=== PATIENT | male | born 1970 | race Caucasian/White ===

== ENCOUNTER → 2019-04-16 11:28 | Outpatient (CLI) | payer OTHER, SELFPAY ==
[2019-04-16 11:41] LABS: Basophils # 0.1 K/mm3 (0-0.2); Basophils % 1.2 % (0.1-2.0); Eosinophils # 0.5 K/mm3 (0.0-0.4); Eosinophils % 6.2 % (0.1-12.0); Hematocrit 46.7 % (42.0-52.0); Hemoglobin 14.3 g/dL (14.1-18.0); Lymphocytes # 1.4 K/mm3 (0.7-4.5); Lymphocytes % 18.6 % (10-50); Mean Corpuscular HGB Conc 30.7 g/dL (31.8-35.4); Mean Corpuscular Hemoglobin 26.1 pg (27.0-31.2); Mean Corpuscular Volume 85.2 fl (80-94); Mean Platelet Volume 7.9 fl (7.4-10.4); Monocytes # 0.4 K/mm3 (0.1-1.0); Monocytes % 4.7 % (1.7-9.3); Neutrophils # 5.4 K/mm3 (1.8-7.8); Neutrophils % 69.2 % (37.0-80.0); Platelet Count 331 K/mm3 (142-424); Red Blood Count 5.48 M/mm3 (4.60-6.20); Red Cell Distribution Width 13.9 % (11.5-17.5); White Blood Count 7.7 K/mm3 (4.8-10.8)
[2019-04-16 11:50] LABS: Hemoglobin A1C 8.8 % (0.0-7.0)
[2019-04-16 11:58] LABS: Alanine Aminotransferase 17 U/L (12-78); Albumin Level 3.4 gm/dL (3.4-5.0); Albumin/Globulin Ratio 0.9 (1.1-1.8); Alkaline Phosphatase 115 U/L (46-116); Aspartate Amino Transferase 13 U/L (15-37); Bilirubin,Total 1.4 mg/dL (0.2-1.0); Blood Urea Nitrogen 14 mg/dL (7-18); Calcium 8.6 mg/dL (8.5-10.1); Carbon Dioxide 25 mmol/L (21.0-32.0); Chloride 102 mmol/L (98-107); Chol/HDL Ratio 2.7 (1-3.5); Cholesterol 150 mg/dL (140-200); Creatinine,Serum 0.89 mg/dL (0.70-1.30); Estimated Glomerular Filt Rate 92 ml/min (>60); GFR (African American) 111 ML/MIN (>60); Globulin 3.6 gm/dl (1.3-3.2); Glucose 307 mg/dL (74-106); HDL Cholesterol 56 mg/dL (27-67); LDL Cholesterol 78 mg/dL (0-130); Sodium 139 mmol/L (136-145); Triglycerides 80 mg/dL (30-200); Troponin I < 0.02 ng/ml (0.00-0.06); VLDL Cholesterol 16 mg/dL (0-40)
--- NOTE | 2019-04-16 11:59 | XR_ITS ---
XR chest 2V HISTORY: ITS.REASON: COUGH,CHEST PAIN,COPD,TYPE I DM ORDERING PHYSICIAN: Cas Elizondo PATIENT AGE: 48 years COMPARISON: 06/23/2017 FINDINGS: The cardiomediastinal silhouette and pulmonary vascularity are within normal limits. The lungs are clear without infiltrates, suspicious nodules, or pleural effusions. There is mild hyperinflation with prominent anterior clear space consistent with COPD. No acute bony abnormalities. IMPRESSION: COPD, no change with no acute finding
== END ==
PROVIDERS: Visit Provider Internal Medicine
DX: R07.9 Chest pain, unspecified (principal); R05 Cough; J44.1 Chronic obstructive pulmonary disease with (acute) exacerbation; E10.40 Type 1 diabetes mellitus with diabetic neuropathy, unspecified
CPT/HCPCS: 36415; 71046; 80053; 80061; 83036; 84484; 85025; 93005

== ENCOUNTER → 2019-05-28 11:23 | Outpatient (CLI) | payer OTHER, SELFPAY ==
--- NOTE | 2019-05-28 11:26 | XR_ITS ---
XR chest 2V HISTORY: ITS.REASON: ASTHMA, PERSISTANT COUGH ORDERING PHYSICIAN: Cas Elizondo PATIENT AGE: 49 years COMPARISON: 04/16/2019 FINDINGS: The cardiomediastinal silhouette and pulmonary vascularity are within normal limits. The lungs are clear without infiltrates, suspicious nodules, or pleural effusions. Hyperinflation consistent with COPD. No acute bony abnormalities. IMPRESSION: No change with no acute finding
== END ==
PROVIDERS: PCP Internal Medicine; Visit Provider Internal Medicine
DX: J45.909 Unspecified asthma, uncomplicated (principal); R05 Cough
CPT/HCPCS: 71046

== ENCOUNTER → 2019-12-26 15:30 | Outpatient (CLI) | payer BC, SELFPAY ==
--- NOTE | 2019-12-26 15:39 | XR_ITS ---
PROCEDURE: XR CHEST 2V CLINICAL HISTORY: LT CHEST PAIN,COUGH,FEVER COMPARISON: CXR1 CHEST-PORTABLE from 03/16/2017 CXR1 CHEST-PORTABLE from 06/20/2017 CXR1 CHEST-PORTABLE from 06/23/2017 FINDINGS: The cardiomediastinal silhouette and pulmonary vascularity are within normal limits. There is hyperinflation with attenuation of the peripheral pulmonary vessels consistent with COPD. No lobar consolidation or collapse No acute bony abnormalities. IMPRESSION: COPD. No change with no acute finding Dictated by: Missael Phipps MD 12/26/2019 16:26 Electronically signed by Missael Phipps MD in [place] 12/26/2019 16:26
== END ==
PROVIDERS: PCP Internal Medicine; Visit Provider Internal Medicine
DX: R07.89 Other chest pain (principal); R05 Cough; R50.9 Fever, unspecified
CPT/HCPCS: 71046

== ENCOUNTER 2020-11-05 10:06 | Emergency (ER) | payer BC, SELFPAY ==
[2020-11-05 10:07] VITALS: BP 147/71; PULSE 70; RESP 18; TEMP 37.2; O2SAT 99; BMI 32.5
--- NOTE | 2020-11-05 10:31 | HMH.EDUTC ---
[facility] [place] Clinical Impression: Strep throat Disposition: Home, Self-Care Condition on Discharge: Good Instructions: Throat Culture, DI for Strep Throat Additional Instructions: Drink plenty of fluids. Take tylenol for pain or fever. Return if you begin to have difficulty breathing. Follow up with your regular doctor. GO TO THE ER FOR ANY WORSENING SYMPTOMS Throw your tooth brush away and get a new one. Prescriptions: Amoxicillin/Potassium Clav [Augmentin 875-125 Tablet] 1 tab PO Q12H 10 Days #20 tab Transmission Status: Received by [facility] Referrals: Cas Elizondo [Primary Care Provider] - Forms: Work/School Release Time of Disposition: 10:37 Medical Decision Making - Medical Records Medical records reviewed: No: I reviewed the patient's medical records. - Alex Inquiry Pt receiving controlled substance: No Vital Signs: 11/05/20 10:07 11/05/20 10:48 Temperature 98.9 F 98.9 F Temperature Source Oral Oral Pulse Rate 70 Pulse Rate [Right] 70 Respiratory Rate 18 18 Blood Pressure 147/71 H Blood Pressure [Right Arm] 147/71 H Blood Pressure Mean [Right Arm] 96 02 Sat by Pulse Oximetry 99 - Lab Data Lab results reviewed: Yes: I reviewed the patient's lab results. Lab Results 11/05/20 10:18: Strep Scn Rapid Clinic Positive A Orders (Tests/Meds): ORDERS Category Date Time Status Covid-19 Nasal PCR Sendout P&C Stat Lab 11/05/20 10:19 Received [facility] [place]PI - General Stated complaint: cough, sore throat Time Seen by Provider: 11/05/20 10:31 Description of Symptoms (Recalled from Triage Doc. by RN): pt request covid test pt c/o cough, sore throat x 2 days HEENT Symptoms (Recalled from RN notes): Yes Resp Symptoms (Recalled from RN notes): Yes Skin Symptoms (Recalled from RN notes): No MS Symptoms (Recalled from RN notes): No Functional Status (Recalled from RN notes): wnl - History of Present Illness Provider Complaint: He c/o sore throat and feeling bad since yesterday. He denies any shortness of breath. He denies any documented exposure to covid. - Related Data Home Medications Medication Instructions Recorded Confirmed insulin glargine 100 unit/mL (3 25 unit SQ BID ml 11/09/18 11/09/18 mL) subcutaneous pen insulin lispro 100 unit/mL 15 unit SQ TID ml 11/09/18 11/09/18 subcutaneous cartridge lisinopril 10 mg tablet 10 mg PO DAILY 11/09/18 11/09/18 lovastatin 20 mg tablet 20 mg PO DAILY 11/09/18 11/09/18 tamsulosin 0.4 mg capsule 0.4 mg PO DAILY 11/09/18 11/09/18 Previous Rx's Medication Instructions Recorded Amoxicillin/Potassium Clav 1 tab PO Q12H 10 Days #20 tab 11/05/20 [Augmentin 875-125 Tablet] Allergies Allergy/AdvReac Type Severity Reaction Status Date / Time No Known Allergies Allergy Verified 11/05/20 10:20 - Worker's Comp Is this a Worker's Comp case?: No Is this an H Worker's Comp?: No Is this a [facility] Worker's Comp?: No [facility] History - Hepatitis A Screen Drug use history?: No High risk sexual behaviors?: No History of sexually transmitted infection?: No Currently employed?: No Childcare worker?: No Do you have indoor plumbing?: Yes Do you have electricity?: Yes Attestation statement:: This patient has been screened for Hepatitis A risk factors. I have reviewed the patient's past medical history: Yes Medical History: Reports:: Diabetes Mellitus Type 2 - Social History Smoking Status: Current every day smoker Alcohol Intake: never Occupational Status: employed ROS Obtained: Yes All systems reviewed & no additional complaints - Constitutional Constitutional: Reports system reviewed and no additional complaints, except as docu - Eyes Eyes: Reports system reviewed and no additional complaints, except as docu - ENT Ears, Nose, Mouth, and Throat: Reports system reviewed and no additional complaints, except as docu - Cardiovascular Cardiovascular: Reports system reviewed and
[2020-11-05 10:36] LABS: UTC Strep Screen (Rapid) Positive (Negative)
[2020-11-05 10:48] VITALS: BP 147/71; PULSE 70; RESP 18; TEMP 37.2; O2SAT 99
[2020-11-06 10:01] LABS: Covid-19 Nasal PCR Sendout P&C Negative
== END 2020-11-05 10:49 | disposition home or self-care (01) ==
PROVIDERS: Emergency Provider Nurse Practitioner Family; PCP Internal Medicine
DX: Z20.822 Contact with and (suspected) exposure to COVID-19 (principal); J02.0 Streptococcal pharyngitis; Z79.4 Long term (current) use of insulin
CPT/HCPCS: 87880; 99202; G0463; U0004

== ENCOUNTER → 2021-03-17 14:12 | Outpatient (CLI) | payer BC, SELFPAY ==
--- NOTE | 2021-03-17 14:17 | XR_ITS ---
PROCEDURE: XR KNEE LT 3V CLINICAL INDICATION: LT KNEE INJURY 03/15/21 Pain COMPARISON: No exams were available for comparison FINDINGS: No fracture or dislocation. No lytic or blastic change. There is normal mineralization. There are mild osteoarthritic changes of the medial compartment. There is increased density in the suprapatellar region consistent with a knee joint effusion. Other findings:None. IMPRESSION: Mild osteoarthritic change medial compartment with knee joint effusion. No acute fracture apparent Dictated by: Missael Phipps MD 03/17/2021 14:42 Missael Phipps MD in [place] 03/17/2021 14:42
== END ==
PROVIDERS: PCP Internal Medicine; Visit Provider Internal Medicine
DX: S89.92XA Unspecified injury of left lower leg, initial encounter (principal)
CPT/HCPCS: 73562

== ENCOUNTER → 2021-10-30 12:30 | Outpatient (CLI) | payer BC, SELFPAY | PROVIDERS: Visit Provider Nurse Practitioner | DX: Z20.822 Contact with and (suspected) exposure to COVID-19 (principal) | CPT/HCPCS: C9803; U0003; U0005 ==

== ENCOUNTER → 2022-01-15 16:40 | Outpatient (CLI) | payer BC, SELFPAY ==
--- NOTE | 2022-01-15 | XR_ITS ---
PROCEDURE INFORMATION: Exam: XR Chest Exam date and time: 01/15/2022 4:52 PM Age: 51 years old Clinical indication: Cough; Additional info: Cough; Flu like symptoms; Possible covid TECHNIQUE: Imaging protocol: XR of the chest. Views: 1 view. COMPARISON: CR XR CHEST 2V 12/26/2019 3:43 PM FINDINGS: Lungs: Unremarkable. No consolidation. Pleural spaces: Unremarkable. No pleural effusion. No pneumothorax. Heart/Mediastinum: Unremarkable. No cardiomegaly. Bones/joints: Unremarkable. IMPRESSION: No acute findings.
== END ==
PROVIDERS: PCP Internal Medicine; Visit Provider Internal Medicine
DX: Z20.822 Contact with and (suspected) exposure to COVID-19 (principal)
CPT/HCPCS: 71045; C9803; U0003; U0005

== ENCOUNTER 2022-01-28 21:27 | Emergency (ER) | payer BC, SELFPAY ==
[2022-01-28 21:28] VITALS: BP 164/93; PULSE 87; RESP 20; TEMP 36.8; O2SAT 99; BMI 34.9
--- NOTE | 2022-01-28 21:50 | XR_ITS ---
PROCEDURE INFORMATION: Exam: XR Right Ribs with PA Chest Exam date and time: 01/28/2022 9:49 PM Age: 51 years old Clinical indication: Other: Right lateral mid rib pain after coughing. ; Additional info: Pain in right ribs TECHNIQUE: Imaging protocol: XR Right ribs with PA chest. Views: 3 views COMPARISON: CR XR CHEST 2V 01/28/2022 9:47 PM FINDINGS: Lungs: Unremarkable. No consolidation. Pleural spaces: Unremarkable. No pleural effusion. No pneumothorax. Heart/Mediastinum: Unremarkable. No cardiomegaly. Bones/joints: Unremarkable. IMPRESSION: No acute findings.
--- NOTE | 2022-01-28 21:50 | XR_ITS ---
PROCEDURE INFORMATION: Exam: XR Chest Exam date and time: 01/28/2022 9:47 PM Age: 51 years old Clinical indication: Right-sided; Patient HX: Right lateral mid rib pain started after coughing. ; Additional info: Chest pain TECHNIQUE: Imaging protocol: XR of the chest. Views: 2 views. COMPARISON: CR XR CHEST PORTABLE 01/15/2022 4:52 PM FINDINGS: Lungs: Bilateral hyperinflation is present. Atelectatic changes noted within both lung bases. Pleural spaces: There is no evidence of pneumothorax. There are no pleural effusions present. Heart/Mediastinum: Unremarkable. No cardiomegaly. Bones/joints: The thoracic spine demonstrates mild degenerative changes at multiple levels. IMPRESSION: 1. Bilateral hyperinflation is present. 2. Atelectatic changes noted within both lung bases.
--- NOTE | 2022-01-28 22:19 | CT_ITS ---
PROCEDURE INFORMATION: Exam: CT Chest Without Contrast; Diagnostic Exam date and time: 01/28/2022 10:31 PM Age: 51 years old Clinical indication: Right-sided; Patient HX: Right sided rib pain; Additional info: Chest pain TECHNIQUE: Imaging protocol: Diagnostic computed tomography of the chest without contrast. 3D rendering (Not supervised by radiologist): MIP and/or 3D reconstructed images were created by the technologist. Radiation optimization: All CT scans at this facility use at least one of these dose optimization techniques: automated exposure control; mA and/or kV adjustment per patient size (includes targeted exams where dose is matched to clinical indication); or iterative reconstruction. COMPARISON: CR XR RIBS RT MIN 3V W CXR1V 01/28/2022 9:49 PM FINDINGS: Lungs: Bilateral hyperinflation is present. Atelectatic changes noted within both lung bases, greater on the right. Pleural spaces: There is no evidence of pneumothorax. There are no pleural effusions present. Heart: There is mild atherosclerotic calcification of the coronary arteries. Lymph nodes: There is no evidence of mediastinal or hilar lymphadenopathy. Aorta: Unremarkable. No aortic aneurysm. Diaphragm: There is nonspecific elevation of the right hemidiaphragm. Spleen: The spleen demonstrates punctate calcifications, consistent with remote granulomatous organism exposure. Bones/joints: No evidence of acute right rib fracture. The thoracic spine demonstrates mild degenerative changes at multiple levels. Soft tissues: Unremarkable. Other findings: Lack of IV contrast limits the study as well as decreases sensitivity and specificity. IMPRESSION: 1. Atelectatic changes noted within both lung bases, greater on the right. 2. No evidence of acute right rib fracture. 3. Bilateral hyperinflation is present.
[2022-01-28 22:44] LABS: Basophils # 0.2 K/mm3 (0-0.2); Basophils % 1.4 % (0.1-2.0); Eosinophils # 0.2 K/mm3 (0.0-0.4); Eosinophils % 1.4 % (0.1-12.0); Hematocrit 45.9 % (42.0-52.0); Hemoglobin 14.9 g/dL (14.1-18.0); Lymphocytes # 1.3 K/mm3 (0.7-4.5); Lymphocytes % 10.2 % (10-50); Mean Corpuscular HGB Conc 32.4 g/dL (31.8-35.4); Mean Corpuscular Hemoglobin 26.4 pg (27.0-31.2); Mean Corpuscular Volume 81.5 fl (80-94); Monocytes # 0.6 K/mm3 (0.1-1.0); Monocytes % 4.4 % (1.7-9.3); Neutrophils # 10.4 K/mm3 (1.8-7.8); Neutrophils % 82.4 % (37.0-80.0); Platelet Count 380 K/mm3 (142-424); Red Blood Count 5.64 M/mm3 (4.60-6.20); Red Cell Distribution Width 14.2 % (11.5-17.5); White Blood Count 12.7 K/mm3 (4.8-10.8)
[2022-01-28 22:45] LABS: Alanine Aminotransferase 23 U/L (12-78); Albumin/Globulin Ratio 1.6 (1.1-1.8); Alkaline Phosphatase 90 U/L (38-126); Anion Gap 9.4 mEq/L (5-15); Aspartate Amino Transferase 26 U/L (17-59); Bilirubin,Total 0.6 mg/dl (0.2-1.3); Blood Urea Nitrogen 20 mg/dl (9-20); Calcium 9.1 mg/dl (8.4-10.2); Carbon Dioxide 27 mmol/L (22.0-30.0); Chloride 105 mmol/L (98-107); Creatinine Clearance Estimated 186 mL/min (50-200); Estimated Glomerular Filt Rate 119 ml/min (>60); GFR (African American) 144 ML/MIN (>60); Globulin 2.5 g/dL (1.3-3.2); Glucose 232 mg/dl (74-100); Potassium 4.4 mmoL/L (3.5-5.1); Sodium 137 mmol/L (136-145); Total Protein,Serum 6.5 g/dl (6.3-8.2)
[2022-01-28 22:50] LABS: C-Reactive Protein 1.7 mg/L (0-4)
[2022-01-28 23:04] LABS: Procalcitonin 0.044 ng/mL (0.0-2.0)
--- NOTE | 2022-01-29 00:01 | HMH.EDGENADL ---
ED Disposition Clinical Impression: Rib pain on right side Disposition: Home, Self-Care Condition on Discharge: Good Instructions: DI for Acute Pain -- Adult Additional Instructions: use meds and see pcp for follow up Prescriptions: predniSONE [Prednisone 20mg Tab] 20 mg PO BID #10 tab Transmission Status: [facility] Ketorolac Tromethamine [Toradol 10mg tablet] 10 mg PO Q6HP PRN #8 tab MDD 40mg/day PRN Reason: Moderate To Severe Pain Transmission Status: Pending to [facility] Referrals: Cas Elizondo [Primary Care Provider] - - Critical Care Critical Care Time: No Attestation: On 01/28/22, the high probability of a clinically significant, sudden or life threatening deterioration of the following system(s) required my full and direct attention, intervention and personal management. The time I documented below is in addition to time spent performing reported procedures but includes the following listed in this critical care notation. Medical Decision Making - Medical Records Medical records reviewed: Yes: I reviewed the patient's medical records. - Alex Inquiry Pt receiving controlled substance: No Vital Signs: 01/28/22 21:28 Temperature 98.2 F Temperature Source Oral Pulse Rate [Left Radial] 87 Respiratory Rate 20 Blood Pressure [Right Arm] 164/93 H Blood Pressure Mean [Right Arm] 116 Blood Pressure Position [Right Arm] Sitting 02 Sat by Pulse Oximetry 99 Oxygen Delivery Method Room Air - Lab Data Lab results reviewed: Yes: I reviewed the patient's lab results. Lab Results 01/28/22 22:30: WBC 12.7 H, RBC 5.64, Hgb 14.9, Hct 45.9, MCV 81.5, MCH 26.4 L, MCHC 32.4, RDW 14.2, Plt Count 380, MPV 8.0, Neut % (Auto) 82.4 H, Lymph % (Auto) 10.2, [place] % (Auto) 4.4, Eos % (Auto) 1.4, Baso % (Auto) 1.4, Neut # (Auto) 10.4 H, Lymph # (Auto) 1.3, [place] # (Auto) 0.6, Eos # (Auto) 0.2, Baso # (Auto) 0.2 01/28/22 22:30: Sodium 137, Potassium 4.4, Chloride 105, Carbon Dioxide 27, Anion Gap 9.4, BUN 20, Creatinine 0.70, Estimated Creat Clear 186, Estimated GFR 119, Est GFR ( Amer) 144, Glucose 232 H, Calcium 9.1, Total Bilirubin 0.6, AST 26, ALT 23, Alkaline Phosphatase 90, C-Reactive Protein 1.7, Total Protein 6.5, Albumin 4.0, Globulin 2.5, Albumin/Globulin Ratio 1.6, Procalcitonin 0.044 Result diagrams: 01/28/22 22:30 01/28/22 22:30 Orders (Tests/Meds): ED MEDICATIONS Discontinued Medications Generic Name Dose Route Start Last Admin Trade Name Freq PRN Reason Stop Dose Admin Acetaminophen 1,000 mg 01/28/22 21:51 01/28/22 21:53 Acetaminophen 500mg Tab PO 01/28/22 21:52 1,000 mg ONCE ONE Administration Ketorolac Tromethamine 30 mg 01/29/22 00:11 Ketorolac 30mg/Ml Vial IV 01/29/22 00:12 ONCE ONE Methylprednisolone Sodium Succinate 125 mg 01/29/22 00:11 Methylprednisolone Sod Succ 125mg Vial IV 01/29/22 00:12 ONCE ONE - Radiology Data #1 Image(s): Chest, Other (rib) Image Reviewed: Yes I have reviewed radiologist's interpretation Preliminary Findings: Abnormal - CT Data CT Scan: Chest Time Received: 00:[address] Reviewed: Yes: I have viewed the radiologist's interpretation Preliminary Findings: Abnormal Medical Decision Narrative: pain with post ribs but no fx or pvt and will treat as inflamatory General Adult HPI - General Chief complaint: PAIN Stated complaint: coughing-- back pain Time Seen by Provider: 01/29/22 00:01 Mode of Arrival: Ambulatory Source of Information: Patient, Medical Record Limitations: No Limitations Description of Symptoms (Recalled from ER Triage Doc. by RN): PT REPORTS HE HAS A CHRONIC COUGH. PT REPORTS HE HAS BEEN COUGHING MORE THAN NORMAL. 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 PT REPORTS PAIN INTERMITT. WORSE WITH COUGHING AND RATES 7/10. - Hist
[2022-01-29 00:23] VITALS: BP 163/86; PULSE 75; RESP 14; TEMP 36.6; O2SAT 97
== END 2022-01-29 00:33 | disposition home or self-care (01) ==
PROVIDERS: Emergency Provider Emergency Medicine; PCP Internal Medicine
DX: R07.81 Pleurodynia (principal); M54.9 Dorsalgia, unspecified; E11.9 Type 2 diabetes mellitus without complications; F17.210 Nicotine dependence, cigarettes, uncomplicated; Z79.4 Long term (current) use of insulin; Z95.2 Presence of prosthetic heart valve; Z79.899 Other long term (current) drug therapy
CPT/HCPCS: 71046; 71101; 71250; 80053; 84145; 85025; 86140; 96374; 96375; 99285

== ENCOUNTER → 2023-02-21 12:31 | Outpatient (CLI) | payer BC, SELFPAY ==
[2023-02-21 15:13] LABS: Basophils # 0.1 K/mm3 (0-0.2); Basophils % 0.7 % (0.1-2.0); Eosinophils # 0.3 K/mm3 (0.0-0.4); Eosinophils % 3.2 % (0.1-12.0); Hematocrit 48.5 % (42.0-52.0); Hemoglobin 15.7 g/dL (14.1-18.0); Lymphocytes # 1.9 K/mm3 (0.7-4.5); Lymphocytes % 20.1 % (10-50); Mean Corpuscular HGB Conc 32.5 g/dL (31.8-35.4); Mean Corpuscular Hemoglobin 26.2 pg (27.0-31.2); Mean Corpuscular Volume 80.6 fl (80-94); Mean Platelet Volume 8.1 fl (7.4-10.4); Monocytes # 0.5 K/mm3 (0.1-1.0); Monocytes % 4.9 % (1.7-9.3); Neutrophils # 6.7 K/mm3 (1.8-7.8); Neutrophils % 71.1 % (37.0-80.0); Platelet Count 342 K/mm3 (142-424); Red Blood Count 6.01 M/mm3 (4.60-6.20); White Blood Count 9.4 K/mm3 (4.8-10.8)
[2023-02-21 15:33] LABS: Microalbumin/Creatinine Ratio 74.7
[2023-02-21 15:37] LABS: Creatinine,Urine Random 61 mg/dL (Not Estab.); Hemoglobin A1C 8.1 % (4.0-6.0)
[2023-02-21 15:46] LABS: Alanine Aminotransferase 18 U/L (12-78); Albumin Level 4.2 g/dl (3.5-5.0); Albumin/Globulin Ratio 1.8 (1.1-1.8); Alkaline Phosphatase 140 U/L (38-126); Anion Gap 18.8 mEq/L (5-15); Aspartate Amino Transferase 22 U/L (17-59); Bilirubin,Total 1.1 mg/dl (0.2-1.3); Blood Urea Nitrogen 17 mg/dl (9-20); Calcium 8.8 mg/dl (8.4-10.2); Carbon Dioxide 25 mmol/L (22.0-30.0); Chloride 95 mmol/L (98-107); Chol/HDL Ratio 2.4 (1-3.5); Cholesterol 190 mg/dl (140-200); Estimated Glomerular Filt Rate 102 ml/min (>60); GFR (African American) 123 ML/MIN (>60); Globulin 2.3 g/dL (1.3-3.2); Glucose 388 mg/dl (74-100); HDL Cholesterol 80 mg/dl (40-60); Potassium 4.8 mmoL/L (3.5-5.1); Sodium 134 mmol/L (136-145); Total Protein,Serum 6.5 g/dl (6.3-8.2); Triglycerides 64 mg/dl (30-150); VLDL Cholesterol 13 mg/dL (0-40)
[2023-02-21 15:58] LABS: Direct LDL Cholesterol 99.23 mg/dL (100-129)
[2023-02-21 16:15] LABS: Prostate Specific Ag Screen 1.7 ng/ml (0.0-4.0); Thyroid Stimulating Hormone 1.58 uIU/mL (0.465-4.68)
== END ==
PROVIDERS: PCP Internal Medicine; Visit Provider Internal Medicine
DX: E10.22 Type 1 diabetes mellitus with diabetic chronic kidney disease (principal); I10 Essential (primary) hypertension; J44.1 Chronic obstructive pulmonary disease with (acute) exacerbation; Z79.4 Long term (current) use of insulin; Z12.5 Encounter for screening for malignant neoplasm of prostate
CPT/HCPCS: 80053; 80061; 82043; 82570; 83036; 84443; 85025; G0103

== ENCOUNTER 2023-04-04 14:49 | Observation (INO) | payer BC, SELFPAY ==
--- NOTE | 2023-04-04 11:33 | XR_ITS ---
FINAL REPORT TECHNIQUE: Chest PA & Lateral CLINICAL HISTORY: COUGH COMPARISON: 01/15/2022 FINDINGS: 2 views of the chest were performed. The heart size is normal. The mediastinum is within normal limits. There is no acute cardiopulmonary process. There are no pleural effusions. There is no pneumothorax. The bony thorax appears intact. IMPRESSION: No acute cardiopulmonary process. Reviewed, Interpreted and Dictated by Scottie Jacinto MD Transcribed by Iva Malin Authenticated and [facility]
[2023-04-04 11:39] LABS: Basophils # 0.1 K/mm3 (0-0.2); Basophils % 0.6 % (0.1-2.0); Eosinophils # 0.1 K/mm3 (0.0-0.4); Eosinophils % 0.7 % (0.1-12.0); Hematocrit 50.7 % (42.0-52.0); Hemoglobin 16.5 g/dL (14.1-18.0); Lymphocytes # 1.8 K/mm3 (0.7-4.5); Lymphocytes % 18.2 % (10-50); Mean Corpuscular HGB Conc 32.5 g/dL (31.8-35.4); Mean Corpuscular Hemoglobin 25.9 pg (27.0-31.2); Mean Corpuscular Volume 79.8 fl (80-94); Mean Platelet Volume 7.5 fl (7.4-10.4); Monocytes # 0.9 K/mm3 (0.1-1.0); Monocytes % 8.9 % (1.7-9.3); Neutrophils % 71.6 % (37.0-80.0); Platelet Count 343 K/mm3 (142-424); Red Blood Count 6.36 M/mm3 (4.60-6.20); Red Cell Distribution Width 14.1 % (11.5-17.5); White Blood Count 9.8 K/mm3 (4.8-10.8)
[2023-04-04 12:00] LABS: Chloride 99 mmol/L (98-107); Potassium 4.5 mmoL/L (3.5-5.1); Sodium 133 mmol/L (136-145)
[2023-04-04 12:03] LABS: Alanine Aminotransferase 23 U/L (12-78); Albumin Level 4.3 g/dl (3.5-5.0); Albumin/Globulin Ratio 1.7 (1.1-1.8); Alkaline Phosphatase 143 U/L (38-126); Anion Gap 19.5 mEq/L (5-15); Aspartate Amino Transferase 28 U/L (17-59); Bilirubin,Total 0.9 mg/dl (0.2-1.3); Blood Urea Nitrogen 30 mg/dl (9-20); Calcium 8.6 mg/dl (8.4-10.2); Carbon Dioxide 19 mmol/L (22.0-30.0); Estimated Glomerular Filt Rate 79 ml/min (>60); GFR (African American) 95 ML/MIN (>60); Globulin 2.6 g/dL (1.3-3.2); Glucose 255 mg/dl (74-100); Total Protein,Serum 6.9 g/dl (6.3-8.2)
[2023-04-04 12:19] LABS: Acetone, Serum (Rapid) Small (None Detect)
--- NOTE | 2023-04-04 15:00 | PC.NURSE ---
arrived to floor by w/c from front lobby admissions
[2023-04-04 15:11] VITALS: BP 164/88; PULSE 92; RESP 20; TEMP 36.5; O2SAT 96
--- NOTE | 2023-04-04 15:11 | HMH.PHAINT1 ---
Pharmacy Intervention Comments: MEDICATION RECONCILIATION COMPLETED ON PATIENT VIA PHONE CALL TO CLINIC PHARMACY. -MICHOACANO HOFF, [place]
--- NOTE | 2023-04-04 15:15 | CT_ITS ---
FINAL REPORT TECHNIQUE: The patient was injected with IV contrast. Axial images were obtained through the chest in a PE protocol. 3-D reconstruction images were also performed. Individualized dose reduction techniques using automated exposure control or adjustment of the MA and/or KV according to patient's size were employed. CLINICAL HISTORY: r/o PE and pneumonia, sob, cough, weakness COMPARISON: CT chest 01/28/2022 FINDINGS: There is suboptimal opacification of the pulmonary arteries. No large central pulmonary embolism identified. There is no aortic dissection. There is no axillary adenopathy. There is no hilar or mediastinal adenopathy. The heart size is normal. There is no pericardial or pleural effusion. No suspicious infiltrate or nodule is identified. There are mild changes of centrilobular emphysema. Limited images of the upper abdomen demonstrate mild fatty infiltration of the liver. The gallbladder is present. IMPRESSION: No evidence of pulmonary embolus or dissection. Reviewed, Interpreted and Dictated by Scottie Jacinto MD Transcribed by Jerri Garcia Authenticated and . [facility]
[2023-04-04 15:16] VITALS: BMI 28.9
[2023-04-04 16:09] LABS: Anion Gap 22.8 mEq/L (5-15); Blood Urea Nitrogen 35 mg/dl (9-20); Calcium 8.2 mg/dl (8.4-10.2); Carbon Dioxide 20 mmol/L (22.0-30.0); Chloride 93 mmol/L (98-107); Creatinine Clearance Estimated 107 mL/min (50-200); Estimated Glomerular Filt Rate 79 ml/min (>60); GFR (African American) 95 ML/MIN (>60); Potassium 4.8 mmoL/L (3.5-5.1); Sodium 131 mmol/L (136-145)
[2023-04-04 16:18] LABS: Glucose 455 mg/dl (74-100)
--- NOTE | 2023-04-04 16:22 | EXP.HP ---
History of Present Illness *Admission Date: 04/04/23 *Reason for visit:: Shortness of breath, weakness *History of present illness: Patient with past medical history of insulin-dependent diabetes mellitus, COPD presents with shortness of breath starting on Tuesday. Patient visited primary care physician Dr. Elizondo today complaining of shortness of breath and decreased p.o. intake. Admits to chronic chills but denies fevers, sick contacts. Also mitts to productive greenish sputum since Tuesday. Admits to pleuritic chest discomfort 04/25, worse with movement, better with rest and standing still. Chest x-ray done in PCP office showed no infiltrates. Patient presented in PCP office with signs of DKA. BUN/creatinine ratio 30/1.0, glucose 255, small acetone urine, and anion gap of greater than 19 noted during PCP evaluation. Patient subsequently directly admitted to medical floor by Dr. Hanson for amelioration of mild to moderate DKA and bacterial bronchitis. Denies diarrhea, abdominal pain, ataxia, new muscle weakness or sensory abnormalities. [facility] Disclaimer: The information contained in this section may have been updated after the patient was seen, as this information can be updated by other users. 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 Hypertension Medical History (Updated 04/04/23 @ 16:38 by Jourdan Hanson MD) COPD (chronic obstructive pulmonary disease) Family History (Updated 04/04/23 @ 16:35 by Cristiane Aburto RN) Other No significant family history Social History (Updated 04/04/23 @ 16:36 by Cristiane Aburto RN) Smoking Status: Current every day smoker alcohol intake: never current occupational status: employed Travel in the last 8 weeks: None Review of Systems Constitutional Constitutional: Reports weakness Eyes Eyes: Reports system reviewed and no additional complaints, except as documented ENT Ears, Nose, Mouth, and Throat: Reports system reviewed and no additional complaints, except as documented *Cardiovascular Cardiovascular: Reports system reviewed and no additional complaints, except as documented *Respiratory Respiratory: Reports excessive phlegm production and Reports pain on inspiration *Gastrointestinal Gastrointestinal: Reports system reviewed and no additional complaints, except as documented *Genitourinary Genitourinary: Reports system reviewed and no additional complaints, except as documented *Musculoskeletal Musculoskeletal: Reports system reviewed and no additional complaints, except as documented Integumentary/Breasts Skin/Breast: Reports system reviewed and no additional complaints, except as documented *Neurologic Neurologic: Reports weakness Meds Home Medications and Allergies Home Medications Medication Instructions Recorded Confirmed Type insulin glargine 100 unit/mL (3 50 unit SQ HS Diabetes 04/04/23 04/04/23 History mL) subcutaneous pen (Lantus Solostar U-100 Insulin) insulin lispro 100 unit/mL 10 unit SQ AC Diabetes 04/04/23 04/04/23 History subcutaneous pen New Prescriptions to Start Prescriptions: Allergies Allergy/AdvReac Type Severity Reaction Status Date / Time No Known Allergies Allergy Verified 11/05/20 10:20 Exam Data for Last 24 hours Vital signs and Labs for Last 24 Hours: Temp Pulse Resp BP Pulse Ox 97.7 F 92 H 20 164/88 H 96 04/04/23 15:11 04/04/23 15:11 04/04/23 15:11 04/04/23 15:11 04/04/23 15:11 Laboratory Results - last 24 hr 04/04/23 11:21: WBC 9.8, RBC 6.36 H, Hgb 16.5, Hct 50.7, MCV 79.8 L, MCH 25.9 L, MCHC 32.5, RDW 14.1, Plt Count 343, MPV 7.5, Neut % (Auto) 71.6, Lymph % (Auto) 18.2, [place] % (Auto) 8.9, Eos % (Auto) 0.7, Baso % (Auto) 0.6, Neut # (Auto) 7.0, Lymph # (Auto) 1.8, [place] # (Auto) 0.9, Eos # (Auto) 0.1, Baso # (Auto) 0.1 04/04/23 11:21: Sodium 133 L, Potassium 4.5, Chloride 99, Carbon Dioxide 19 L, Anion Gap 1
[2023-04-04 16:26] LABS: Procalcitonin 0.144 ng/mL (0.0-2.0)
[2023-04-04 16:47] LABS: Lactic Acid 1.1 mmol/L (0.7-2.1)
--- NOTE | 2023-04-04 17:19 | PC.NURSE ---
fsbg 341 15 min after 3units iv insuin admin
[2023-04-04 17:37] LABS: Coronavirus 19, PCR Not Detected (NotDetected); Influenza A, PCR Not Detected (NotDetected); Influenza B, PCR Not Detected (NotDetected)
[2023-04-04 18:32] VITALS: PULSE 89; PULSE 94; O2SAT 94
[2023-04-04 19:10] LABS: Chloride 98 mmol/L (98-107); Sodium 132 mmol/L (136-145)
[2023-04-04 19:13] LABS: POC Glucose,Bedside 231 (70-110)
[2023-04-04 19:13] LABS: POC Glucose,Bedside 341 (70-110)
[2023-04-04 19:13] LABS: Blood Urea Nitrogen 36 mg/dl (9-20); Creatinine Clearance Estimated 107 mL/min (50-200); Estimated Glomerular Filt Rate 79 ml/min (>60); GFR (African American) 95 ML/MIN (>60)
[2023-04-04 19:13] LABS: POC Glucose,Bedside 409 (70-110)
[2023-04-04 19:14] LABS: Calcium 8.3 mg/dl (8.4-10.2); Carbon Dioxide 19 mmol/L (22.0-30.0); Glucose 234 mg/dl (74-100)
[2023-04-04 19:29] LABS: Troponin I < 0.01 ng/ml (0.00-0.034)
--- NOTE | 2023-04-04 19:48 | PC.NURSE ---
1800 lung sounds clear throughout, bowel sounds are active in all quads. no skin issues noted. pt is a/o x 4 nad noted.
[2023-04-04 20:00] VITALS: BP 140/80; PULSE 80; PULSE 84; RESP 28; TEMP 36.5; O2SAT 92
[2023-04-04 21:57] VITALS: BP 140/80; PULSE 114; RESP 35
[2023-04-04 22:10] LABS: POC Glucose,Bedside 184 (70-110)
[2023-04-04 22:10] LABS: POC Glucose,Bedside 185 (70-110)
[2023-04-04 22:10] LABS: POC Glucose,Bedside 190 (70-110)
[2023-04-04 23:08] LABS: POC Glucose,Bedside 173 (70-110)
[2023-04-04 23:37] LABS: Anion Gap 14.8 mEq/L (5-15); Blood Urea Nitrogen 33 mg/dl (9-20); Carbon Dioxide 21 mmol/L (22.0-30.0); Chloride 102 mmol/L (98-107); Creatinine Clearance Estimated 133 mL/min (50-200); Estimated Glomerular Filt Rate 102 ml/min (>60); GFR (African American) 123 ML/MIN (>60); Glucose 175 mg/dl (74-100); Potassium 3.8 mmoL/L (3.5-5.1); Sodium 134 mmol/L (136-145)
[2023-04-04 23:42] VITALS: BP 152/80; PULSE 77; RESP 25; TEMP 36.7; O2SAT 94
[2023-04-05] VITALS (16 sets, daily range): BP systolic 84–163; BP diastolic 67–86; PULSE 76–100; RESP 16–25; TEMP 36.6–36.9; O2SAT 92–95; BMI 28.6
[2023-04-05 00:10] LABS: POC Glucose,Bedside 146 (70-110)
[2023-04-05 00:55] LABS: Troponin I < 0.01 ng/ml (0.00-0.034)
[2023-04-05 01:10] LABS: POC Glucose,Bedside 170 (70-110)
[2023-04-05 02:00] LABS: POC Glucose,Bedside 172 (70-110)
[2023-04-05 03:22] LABS: POC Glucose,Bedside 178 (70-110)
[2023-04-05 04:20] LABS: POC Glucose,Bedside 168 (70-110)
[2023-04-05 05:09] LABS: POC Glucose,Bedside 178 (70-110)
[2023-04-05 06:03] LABS: Basophils % 0.3 % (0.1-2.0); Mean Corpuscular Volume 78.7 fl (80-94); Monocytes # 0.5 K/mm3 (0.1-1.0)
[2023-04-05 06:05] LABS: POC Glucose,Bedside 184 (70-110)
[2023-04-05 06:22] LABS: Chloride 103 mmol/L (98-107); Potassium 3.7 mmoL/L (3.5-5.1); Sodium 135 mmol/L (136-145)
[2023-04-05 06:25] LABS: Anion Gap 12.7 mEq/L (5-15); Blood Urea Nitrogen 27 mg/dl (9-20); Calcium 7.6 mg/dl (8.4-10.2); Carbon Dioxide 23 mmol/L (22.0-30.0); Creatinine Clearance Estimated 151 mL/min (50-200); Estimated Glomerular Filt Rate 119 ml/min (>60); GFR (African American) 144 ML/MIN (>60); Glucose 190 mg/dl (74-100); Magnesium 1.9 mg/dl (1.6-2.3)
[2023-04-05 06:36] LABS: Troponin I < 0.01 ng/ml (0.00-0.034)
[2023-04-05 06:37] LABS: Eosinophils % 0.3 % (0.1-12.0); Hematocrit 42.8 % (42.0-52.0); Lymphocytes # 1.5 K/mm3 (0.7-4.5); Lymphocytes % 18.9 % (10-50); Mean Corpuscular HGB Conc 32.7 g/dL (31.8-35.4); Mean Corpuscular Hemoglobin 25.7 pg (27.0-31.2); Mean Platelet Volume 7.6 fl (7.4-10.4); Monocytes % 6.5 % (1.7-9.3); Neutrophils # 5.7 K/mm3 (1.8-7.8); Neutrophils % 74.1 % (37.0-80.0); Platelet Count 295 K/mm3 (142-424); Red Blood Count 5.44 M/mm3 (4.60-6.20); Red Cell Distribution Width 14.2 % (11.5-17.5); White Blood Count 7.7 K/mm3 (4.8-10.8)
[2023-04-05 07:07] LABS: POC Glucose,Bedside 208 (70-110)
--- NOTE | 2023-04-05 09:42 | PC.NURSE ---
Insulin drip stopped per Dr. Hanson.
[2023-04-05 09:48] LABS: POC Glucose,Bedside 274 (70-110)
--- NOTE | 2023-04-05 10:24 | PC.NURSE ---
Per Dr. Hanson, it is okay to take off the heart monitor and continuos heart monitor and bp cuff. Recheck glucose at 1230 and cover with sliding scale coverage.
[2023-04-05 13:06] LABS: POC Glucose,Bedside 348 (70-110)
[2023-04-05 14:55] LABS: Chloride 99 mmol/L (98-107); Sodium 133 mmol/L (136-145)
[2023-04-05 14:56] LABS: Potassium 3.6 mmoL/L (3.5-5.1)
[2023-04-05 14:59] LABS: Anion Gap 15.6 mEq/L (5-15); Blood Urea Nitrogen 25 mg/dl (9-20); Calcium 8.5 mg/dl (8.4-10.2); Carbon Dioxide 22 mmol/L (22.0-30.0); Creatinine Clearance Estimated 118 mL/min (50-200); Estimated Glomerular Filt Rate 89 ml/min (>60); GFR (African American) 108 ML/MIN (>60)
[2023-04-05 15:17] LABS: Glucose 484 mg/dl (74-100)
--- NOTE | 2023-04-05 15:50 | EXP.PN ---
Subjective *Date: 04/05/23 *Time: 15:53 Interval history: Patient's blood sugars proving to be extremely hard to control during hospitalization. Patient taken off insulin drip this morning with anion gap closed. However, after receiving 45 units subcu short acting insulin over 5-hour interval, and in addition to 29 units given in a.m.; patient's blood sugars still in 300s. Patient's discharge for today therefore canceled, and patient placed on high-dose sliding scale insulin every 4 hours. Denies polydipsia, polyuria, polyphagia, fevers, chills. Exam Data for Last 24 hours Vital signs and Labs for Last 24 Hours: Temp Pulse Resp BP Pulse Ox 98.5 F 78 25 H 153/80 H 94 L 04/05/23 11:02 04/05/23 13:09 04/05/23 09:44 04/05/23 09:44 04/05/23 09:44 Laboratory Results - last 24 hr 04/04/23 15:08: SARS-CoV-2 (PCR) Not detected, Influenza A Untype (PCR) Not detected, Influenza Type B (PCR) Not detected 04/04/23 15:39: Sodium 131 L, Potassium 4.8, Chloride 93 L, Carbon Dioxide 20 L, Anion Gap 22.8 H, BUN 35 H, Creatinine 1.00, Estimated Creat Clear 107, Estimated GFR 79, Est GFR ( Amer) 95, Glucose 455 H* D, Calcium 8.2 L 04/04/23 15:39: Procalcitonin 0.144 04/04/23 15:47: POC Glucose 409 H* 04/04/23 16:30: Lactate 1.1 04/04/23 17:17: POC Glucose 341 H* 04/04/23 18:18: POC Glucose 231 H 04/04/23 18:55: Troponin I < 0.01 04/04/23 18:55: Sodium 132 L, Potassium 4.0, Chloride 98, Carbon Dioxide 19 L, Anion Gap 19.0 H, BUN 36 H, Creatinine 1.00, Estimated Creat Clear 107, Estimated GFR 79, Est GFR ( Amer) 95, Glucose 234 H D, Calcium 8.3 L 04/04/23 20:00: POC Glucose 185 H 04/04/23 21:02: POC Glucose 190 H 04/04/23 22:04: POC Glucose 184 H 04/04/23 23:02: POC Glucose 173 H 04/04/23 23:26: Sodium 134 L, Potassium 3.8, Chloride 102, Carbon Dioxide 21 L, Anion Gap 14.8, BUN 33 H, Creatinine 0.80, Estimated Creat Clear 133, Estimated GFR 102, Est GFR ( Amer) 123 D, Glucose 175 H D, Calcium 8.0 L 04/05/23 00:03: POC Glucose 146 H 04/05/23 01:03: POC Glucose 170 H 04/05/23 01:53: POC Glucose 172 H 04/05/23 03:15: POC Glucose 178 H 04/05/23 04:13: POC Glucose 168 H 04/05/23 05:02: POC Glucose 178 H 04/05/23 05:29: WBC 7.7, RBC 5.44, Hgb 14.0 L D, Hct 42.8, MCV 78.7 L, MCH 25.7 L, MCHC 32.7, RDW 14.2, Plt Count 295, MPV 7.6, Neut % (Auto) 74.1, Lymph % (Auto) 18.9, [place] % (Auto) 6.5, Eos % (Auto) 0.3, Baso % (Auto) 0.3, Neut # (Auto) 5.7, Lymph # (Auto) 1.5, [place] # (Auto) 0.5, Eos # (Auto) 0.0, Baso # (Auto) 0.0 04/05/23 05:29: Sodium 135 L, Potassium 3.7, Chloride 103, Carbon Dioxide 23, Anion Gap 12.7, BUN 27 H, Creatinine 0.70, Estimated Creat Clear 151, Estimated GFR 119, Est GFR ( Amer) 144, Glucose 190 H, Calcium 7.6 L, Magnesium 1.9, Troponin I < 0.01 04/05/23 05:58: POC Glucose 184 H 04/05/23 07:00: POC Glucose 208 H 04/05/23 09:39: POC Glucose 274 H 04/05/23 12:52: POC Glucose 348 H* 04/05/23 14:28: Sodium 133 L, Potassium 3.6, Chloride 99, Carbon Dioxide 22, Anion Gap 15.6 H, BUN 25 H, Creatinine 0.90 D, Estimated Creat Clear 118, Estimated GFR 89, Est GFR ( Amer) 108 D, Glucose 484 H* D, Calcium 8.5 04/05/23 23:30: Troponin I < 0.01 I & O for Last 24 hours: Intake & Output 04/02/23 04/03/23 04/04/23 04/05/23 23:59 23:59 23:59 23:59 Intake Total 240 / 1595 1956 / 1956 Output Total 400 / 400 600 / 600 Balance -160 / 1195 1356 / 1356 Weight 86.296 kg 85.729 kg *Routine HEENT Exam Head: Present normocephalic Eye: Present EOMI and normal accommodation ENT: Present mucous membranes moist *Routine Neck Exam Neck: Present supple and full ROM *Routine Respiratory Exam Respiratory: Present CTA bilaterally; Absent accessory muscle use *Routine Cardiovascular Exam Cardiovascular: Present RRR, Normal S1 and Normal S2 *Routine Abdominal Exam Abdominal: Present soft, normoactive bowel sounds and rebound; Absent guarding *Routine Rectal Exam Comments: deferred *Routine Exam Comments: def
[2023-04-05 16:10] LABS: POC Glucose,Bedside 383 (70-110)
[2023-04-05 23:24] LABS: POC Glucose,Bedside 93 (70-110)
[2023-04-05 23:24] LABS: POC Glucose,Bedside 225 (70-110)
[2023-04-05 23:24] LABS: POC Glucose,Bedside 231 (70-110)
[2023-04-06] VITALS (8 sets, daily range): BP systolic 133–144; BP diastolic 53–97; PULSE 78–120; RESP 16–22; TEMP 36.8–37.1; O2SAT 90–99; BMI 32.6
[2023-04-06 03:10] LABS: POC Glucose,Bedside 65 (70-110)
[2023-04-06 03:44] LABS: POC Glucose,Bedside 60 (70-110)
[2023-04-06 03:44] LABS: POC Glucose,Bedside 63 (70-110)
[2023-04-06 04:36] LABS: POC Glucose,Bedside 180 (70-110)
[2023-04-06 06:06] LABS: Basophils # 0.1 K/mm3 (0-0.2); Basophils % 0.5 % (0.1-2.0); Eosinophils # 0.1 K/mm3 (0.0-0.4); Eosinophils % 0.8 % (0.1-12.0); Hematocrit 41.3 % (42.0-52.0); Hemoglobin 13.4 g/dL (14.1-18.0); Lymphocytes # 2.5 K/mm3 (0.7-4.5); Lymphocytes % 24.3 % (10-50); Mean Corpuscular HGB Conc 32.5 g/dL (31.8-35.4); Mean Corpuscular Hemoglobin 25.8 pg (27.0-31.2); Mean Corpuscular Volume 79.2 fl (80-94); Mean Platelet Volume 7.8 fl (7.4-10.4); Monocytes # 0.7 K/mm3 (0.1-1.0); Monocytes % 7.1 % (1.7-9.3); Neutrophils # 6.9 K/mm3 (1.8-7.8); Neutrophils % 67.2 % (37.0-80.0); Platelet Count 258 K/mm3 (142-424); Red Blood Count 5.21 M/mm3 (4.60-6.20); Red Cell Distribution Width 14.2 % (11.5-17.5); White Blood Count 10.2 K/mm3 (4.8-10.8)
[2023-04-06 06:08] LABS: Chloride 107 mmol/L (98-107); Potassium 3.3 mmoL/L (3.5-5.1); Sodium 138 mmol/L (136-145)
[2023-04-06 06:10] LABS: Blood Urea Nitrogen 17 mg/dl (9-20); Creatinine Clearance Estimated 201 mL/min (50-200); Estimated Glomerular Filt Rate 142 ml/min (>60); GFR (African American) 172 ML/MIN (>60)
[2023-04-06 06:11] LABS: Anion Gap 11.3 mEq/L (5-15); Calcium 7.7 mg/dl (8.4-10.2); Carbon Dioxide 23 mmol/L (22.0-30.0); Glucose 166 mg/dl (74-100); Magnesium 1.7 mg/dl (1.6-2.3)
[2023-04-06 07:15] LABS: POC Glucose,Bedside 176 (70-110)
--- NOTE | 2023-04-06 07:20 | EXP.DC.SUM ---
General Admission date:: 04/04/23 Discharge date: 04/06/23 HPI HPI HPI: Patient with past medical history of insulin-dependent diabetes mellitus, COPD presents with shortness of breath starting on Tuesday. Patient visited primary care physician Dr. Elizondo today complaining of shortness of breath and decreased p.o. intake. Admits to chronic chills but denies fevers, sick contacts. Also mitts to productive greenish sputum since Tuesday. Admits to pleuritic chest discomfort 04/25, worse with movement, better with rest and standing still. Chest x-ray done in PCP office showed no infiltrates. Patient presented in PCP office with signs of DKA. BUN/creatinine ratio 30/1.0, glucose 255, small acetone urine, and anion gap of greater than 19 noted during PCP evaluation. Patient subsequently directly admitted to medical floor by Dr. Hanson for amelioration of mild to moderate DKA and bacterial bronchitis. Denies diarrhea, abdominal pain, ataxia, new muscle weakness or sensory abnormalities. Hospital Course Hospital Course Hospital Course: Patient admitted with shortness of breath for several days and decreased p.o. intake. Patient directly admitted from primary care physician Dr. Elizodno's office after being diagnosed with DKA/bronchitis. Patient originally given IV push x1 regular IV insulin, then started on intensive every 4 hour sliding scale insulin SQ administration at time of admission. Unfortunately, patient's blood sugars continue to trend upward, and patient placed onIV insulin drip for less than 24 hours. 04/05/2023 in am after patient's anion gap closed, patient discontinued from insulin drip 2hrs after administration of long-acting subcutaneous insulin. Patient's blood sugars proved extremely difficult to control 04/05/2023, and patient given a total of 62 units short acting insulin and normal saline 150 cc/h mIVF to achieve euglycemia by 04/06/2023 6:50 AM. Patient subsequently discharged home on Lantus 30 units subcu every 12, and Humalog 22 units with meals and with instructions to follow-up with primary care physician within 1 week of hospital discharge. Patient's potassium and magnesium were also corrected during hospitalization. Patient sent home with additional outpatient potassium, magnesium supplementation. In terms of patient's shortness of breath, admission CTA chest was done showing no pneumonia or pulmonary embolus. Patient's breathing improved on scheduled DuoNebs and IV doxycycline therapy. Patient subsequently discharged home on p.o. doxycycline, and as needed albuterol inhaler. Patient advised to follow-up with primary care for within 1 week of hospital discharge. Exam Data for Last 24 hours Vital signs and Labs for Last 24 Hours: Temp Pulse Resp BP Pulse Ox 98.7 F 120 H 20 136/97 H 96 04/06/23 04:00 04/06/23 06:13 04/06/23 06:00 04/06/23 06:00 04/06/23 06:13 Laboratory Results - last 24 hr 04/05/23 09:39: POC Glucose 274 H 04/05/23 12:52: POC Glucose 348 H* 04/05/23 14:28: Sodium 133 L, Potassium 3.6, Chloride 99, Carbon Dioxide 22, Anion Gap 15.6 H, BUN 25 H, Creatinine 0.90 D, Estimated Creat Clear 118, Estimated GFR 89, Est GFR ( Amer) 108 D, Glucose 484 H* D, Calcium 8.5 04/05/23 15:34: POC Glucose 383 H* 04/05/23 19:14: POC Glucose 231 H 04/05/23 20:21: POC Glucose 225 H 04/05/23 23:17: POC Glucose 93 04/06/23 03:00: POC Glucose 65 L 04/06/23 03:16: POC Glucose 60 L 04/06/23 03:37: POC Glucose 63 L 04/06/23 04:29: POC Glucose 180 H 04/06/23 05:25: WBC 10.2 D, RBC 5.21, Hgb 13.4 L, Hct 41.3 L, MCV 79.2 L, MCH 25.8 L, MCHC 32.5, RDW 14.2, Plt Count 258, MPV 7.8, Neut % (Auto) 67.2, Lymph % (Auto) 24.3, [place] % (Auto) 7.1, Eos % (Auto) 0.8, Baso % (Auto) 0.5, Neut # (Auto) 6.9, Lymph # (Auto) 2.5, [place] # (Auto) 0.7, Eos # (Auto) 0.1, Baso # (Auto) 0.1 04/06/23 05:25: Sodium 138, Potassium 3.3 L, Chloride 107, Carbon Dioxide 23, Anion Gap 11.3, BUN 17 D, Creatinine 0.60 L D, Estimated Creat Clear 201,
--- NOTE | 2023-04-07 13:21 | CARE MANAGER ---
Spoke with patient for post-discharge phone interview, no issues noted.
== END 2023-04-06 08:44 | disposition home or self-care (01) ==
LOC: 2ND 14:53
PROVIDERS: Admitting Provider Internal Medicine; PCP Internal Medicine; Visit Provider Internal Medicine
DX: E10.10 Type 1 diabetes mellitus with ketoacidosis without coma (principal); J44.9 Chronic obstructive pulmonary disease, unspecified; R07.81 Pleurodynia; J40 Bronchitis, not specified as acute or chronic; Z79.4 Long term (current) use of insulin; Z79.899 Other long term (current) drug therapy; I10 Essential (primary) hypertension; F17.210 Nicotine dependence, cigarettes, uncomplicated
CPT/HCPCS: 36415; 71046; 71275; 80048; 80053; 82009; 82962; 83605; 83735; 84145; 84484; 85025; 87070; 87205; 87636; 94640; C9803; G0378; Q9967; U0003; U0005